=== PATIENT | male | born 1945 | race Caucasian/White ===

== ENCOUNTER 2016-11-04 11:38 | Inpatient (IN) | payer MEDICARE ==
[~2016-11-04] VITALS: Ht 172.7 cm; Wt 83.0 kg
[~2016-11-04 11:38] MED LIST: ANUSOL-HC SUPPO25 MG RC; CIPRO 500MG TA500 MG PO; DOXYCYCLINE 10100 MG PO; HTN MED; IMODIUM 2MG CAPS2 MG PO; NIFEDIPINE10 M1 PO; NORVASC 5MG5 MG/TAB PO; PREDNISONE20 MG PO; VASOTEC 10M10 MG/TAB PO; VASOTEC10 MG PO
[2016-11-04 12:26] LABS: ADJUSTED CALCIUM 8.9 mg/dL (8.4-10.2); ALBUMIN 4.5 gm/dL (3.5-5.0); BASO % 0.5 % (0.0-2.0); BILIRUBIN,TOTAL 1.2 mg/dL (0.0-1.0); CALCIUM 9.3 mg/dL (8.4-10.2); CREATININE, serum 1.15 mg/dL (0.66-1.25); GRAN # 6.8 (1.4-6.5); GRAN % 82.7 % (42.2-75.2); HEMATOCRIT 41.7 % (42.0-52.0); HEMOGLOBIN 13.6 g/dl (13.5-18.0); LYMPH # 0.8 (1.2-3.4); LYMPH % 9.5 % (20.0-51.0); MEAN CELL VOLUME 90 fl (80.0-100.0); MEAN CORPUSCULAR HEMOGLOBIN 29 pg (27.0-31.0); MEAN CORPUSCULAR HGB CONC 33 g/dl (33.0-37.0); MEAN PLATELET VOLUME 11.5 fl (7.4-10.4); MONO # 0.6 (0.1-0.6); MONO % 6.9 % (1.7-9.3); PLATELET COUNT 183 K/mm3 (130-400); POTASSIUM 3.9 mmol/L (3.4-5.0); RED BLOOD COUNT 4.64 M/mm3 (4.20-5.60); REDCELL DISTRIBUTION WIDTH-CV 13.8 % (11.5-14.5); TOTAL PROTEIN 8.3 gm/dL (6.4-8.2); WHITE BLOOD COUNT 8.2 K/mm3 (4.8-10.8)
[2016-11-04 12:30] LABS: INFLUENZA B NEGATIVE
[2016-11-04 15:56] VITALS: BP 129/89; PULSE 106; TEMP 98.7
[2016-11-04 20:27] VITALS: BP 126/75; PULSE 99; TEMP 99.5
[2016-11-04 23:48] VITALS: BP 127/91; PULSE 84; TEMP 99.2
[2016-11-05 03:55] VITALS: BP 149/95; PULSE 87; TEMP 99.4
[2016-11-05 07:41] VITALS: BP 126/81; PULSE 91; TEMP 98.1
[2016-11-05 11:36] VITALS: BP 134/84; PULSE 88; TEMP 100.5
[2016-11-05 15:27] VITALS: BP 121/74; PULSE 92; TEMP 98.6
[2016-11-05 19:58] VITALS: BP 156/91; PULSE 97; TEMP 98
[2016-11-06] VITALS (7 sets, daily range): BP systolic 130–175; BP diastolic 78–97; PULSE 64–84; TEMP 97.3–98.7
[2016-11-07] VITALS (576 sets, daily range): BP systolic 142–189; BP diastolic 87–117; PULSE 60–84; TEMP 97.7–99.5; O2SAT 60–100
[2016-11-07 07:51] LABS: MEAN CELL VOLUME 90 fl (80.0-100.0); MEAN CORPUSCULAR HGB CONC 33 g/dl (33.0-37.0); MEAN PLATELET VOLUME 11.7 fl (7.4-10.4); PLATELET COUNT 188 K/mm3 (130-400); RED BLOOD COUNT 3.84 M/mm3 (4.20-5.60); REDCELL DISTRIBUTION WIDTH-CV 14.3 % (11.5-14.5); WHITE BLOOD COUNT 9.5 K/mm3 (4.8-10.8)
[2016-11-07 07:53] LABS: CALCIUM 8.9 mg/dL (8.4-10.2); CREATININE, serum 0.95 mg/dL (0.66-1.25); POTASSIUM 3.7 mmol/L (3.4-5.0)
[2016-11-07 08:00] LABS: HEMATOCRIT 34.4 % (42.0-52.0); HEMOGLOBIN 11.3 g/dl (13.5-18.0); MEAN CORPUSCULAR HEMOGLOBIN 29 pg (27.0-31.0)
[2016-11-07 08:10] LABS: INR 1.2 (0.8-3.0); PROTHROMBIN TIME 13.7 SECONDS (9.7-12.8)
[2016-11-07 08:13] LABS: PARTIAL THROMBOPLASTIN TIME 31.4 SECONDS (26.0-37.0)
[2016-11-08] VITALS (660 sets, daily range): BP systolic 122–159; BP diastolic 88–110; PULSE 55–67; TEMP 97.4–98.6; O2SAT 78–100
[2016-11-08 06:38] LABS: CALCIUM 9.1 mg/dL (8.4-10.2); CREATININE, serum 1.04 mg/dL (0.66-1.25); POTASSIUM 3.4 mmol/L (3.4-5.0)
[2016-11-08 10:08] LABS: HEMATOCRIT 36.9 % (42.0-52.0); HEMOGLOBIN 12.1 g/dl (13.5-18.0); MEAN CELL VOLUME 89 fl (80.0-100.0); MEAN CORPUSCULAR HEMOGLOBIN 29 pg (27.0-31.0); MEAN CORPUSCULAR HGB CONC 33 g/dl (33.0-37.0); PLATELET COUNT 192 K/mm3 (130-400); RED BLOOD COUNT 4.13 M/mm3 (4.20-5.60); REDCELL DISTRIBUTION WIDTH-CV 14.2 % (11.5-14.5); WHITE BLOOD COUNT 12.6 K/mm3 (4.8-10.8)
[2016-11-08 11:39] LABS: INFLUENZA B NEGATIVE
[2016-11-08] MEDS ORDERED: TOPROL XL100 MG PO (13:45)
[2016-11-08] MEDS ORDERED: BRILINTA90 MG PO (13:45)
[2016-11-08] MEDS ORDERED: LIPITOR 40MG TA40 MG PO (13:45)
[2016-11-08] MEDS ORDERED: ASPIRIN E.C. 8181 MG PO (13:45)
[2016-11-08] MEDS ORDERED: LEVAQUIN 5500 MG/TA1 PO (13:47)
== END 2016-11-08 15:38 | disposition home or self-care (01) | DRG 982 ==
LOC: COL.ER 11:38 → MEDICAL 14:26 → IMCU 11-07 10:00 → ICU 11-07 10:00 → IMCU 11-07 10:00 → ICU 11-07 10:00 → IMCU 11-07 17:30
PROVIDERS: Emergency Medicine; Internal Medicine Cardiovascular Disease
PROC: 027135Z Dilation of Coronary Artery, Two Arteries with Two Drug-eluting Intraluminal Devices, Percutaneous Approach (ICD-10-PCS; principal; 2016-11-07)
PROC: B2111ZZ Fluoroscopy of Multiple Coronary Arteries using Low Osmolar Contrast (ICD-10-PCS; 2016-11-07)
DX: J18.9 Pneumonia, unspecified organism (principal); I47.1 Supraventricular tachycardia; I50.22 Chronic systolic (congestive) heart failure; I25.110 Atherosclerotic heart disease of native coronary artery with unstable angina pectoris; I11.0 Hypertensive heart disease with heart failure; Z95.5 Presence of coronary angioplasty implant and graft
CPT/HCPCS: C1725; C1760; C1769; C1874; C1887; C9600; G0378; J0583; J1100; J1956; J2250; J3010; J7030; Q9967

== ENCOUNTER → 2016-11-29 | Outpatient (CLI) | payer MEDICARE ==
[~2016-11-29] MED LIST changes: +ASPIRIN E.C. 8181 MG PO; +BRILINTA90 MG PO; +FLAGYL500 MG PO; +LEVAQUIN 5500 MG/TA1 PO; +LIPITOR 40MG TA40 MG PO; +NORCO 325 MG-51 TAB PO; +TOPROL XL100 MG PO
== END ==
LOC: COL.VAS 13:41
DX: I25.10 Atherosclerotic heart disease of native coronary artery without angina pectoris (principal); R94.39 Abnormal result of other cardiovascular function study

== ENCOUNTER 2017-01-30 10:16 | Emergency (ER) | payer MEDICARE ==
[2006-04-25 16:11] VITALS: BP 176/104
[~2017-01-30] VITALS: Ht 172.7 cm; Wt 79.5 kg
[~2017-01-30 10:16] MED LIST changes: -FLAGYL500 MG PO; -NORCO 325 MG-51 TAB PO
[2017-01-30 10:18] VITALS: TEMP 98.2
[2017-01-30 10:44] LABS: BASO # 0.1 (0.0-0.2); BASO % 1.2 % (0.0-2.0); EOS # 0.4 (0.0-0.7); GRAN # 2.8 (1.4-6.5); GRAN % 54.3 % (42.2-75.2); LYMPH # 1.4 (1.2-3.4); MEAN CELL VOLUME 92 fl (80.0-100.0); MEAN CORPUSCULAR HGB CONC 32 g/dl (33.0-37.0); MEAN PLATELET VOLUME 11.3 fl (7.4-10.4); MONO # 0.5 (0.1-0.6); MONO % 10.3 % (1.7-9.3); PLATELET COUNT 201 K/mm3 (130-400); RED BLOOD COUNT 3.96 M/mm3 (4.20-5.60); REDCELL DISTRIBUTION WIDTH-CV 14.6 % (11.5-14.5); WHITE BLOOD COUNT 5.2 K/mm3 (4.8-10.8)
[2017-01-30 10:46] LABS: HEMATOCRIT 36.6 % (42.0-52.0); HEMOGLOBIN 11.7 g/dl (13.5-18.0); MEAN CORPUSCULAR HEMOGLOBIN 30 pg (27.0-31.0)
[2017-01-30 10:48] LABS: INR 1.1 (0.8-3.0); PROTHROMBIN TIME 11.8 SECONDS (9.7-12.8)
[2017-01-30 10:51] LABS: PARTIAL THROMBOPLASTIN TIME 38.9 SECONDS (26.0-37.0)
[2017-01-30 11:15] LABS: ADJUSTED CALCIUM 9.2 mg/dL (8.4-10.2); ALBUMIN 4.3 gm/dL (3.5-5.0); BILIRUBIN,TOTAL 1.1 mg/dL (0.0-1.0); CALCIUM 9.4 mg/dL (8.4-10.2); CREATININE, serum 1.07 mg/dL (0.66-1.25); POTASSIUM 4.6 mmol/L (3.4-5.0); TOTAL PROTEIN 7.4 gm/dL (6.4-8.2)
[2017-01-30] MEDS ORDERED: ANUSOL-HC SUPPO25 MG RC (13:47)
[2017-01-30 14:37] VITALS: BP 173/84; PULSE 66
== END 2017-01-30 14:39 | disposition home or self-care (01) ==
LOC: COL.ER 10:16
PROVIDERS: Emergency Medicine
DX: I71.4 Abdominal aortic aneurysm, without rupture (principal); K64.4 Residual hemorrhoidal skin tags; I10 Essential (primary) hypertension; E78.5 Hyperlipidemia, unspecified; Z79.82 Long term (current) use of aspirin
CPT/HCPCS: Q9967

== ENCOUNTER 2017-03-08 14:23 | Outpatient (RCR) | payer MEDICARE | END 2017-03-12 | disposition home or self-care (01) | LOC: COL.CR | DX: Z48.812 Encounter for surgical aftercare following surgery on the circulatory system (principal); Z95.5 Presence of coronary angioplasty implant and graft ==

== ENCOUNTER 2017-03-12 17:55 | Inpatient (IN) | payer MEDICARE ==
[~2017-03-12] VITALS: Ht 172.7 cm; Wt 74.5 kg
[2017-03-12 18:38] LABS: BASO # 0.1 (0.0-0.2); BASO % 0.6 % (0.0-2.0); EOS # 0.3 (0.0-0.7); EOS % 2.3 % (0-4.0); GRAN # 8.7 (1.4-6.5); GRAN % 78.1 % (42.2-75.2); LYMPH # 1.3 (1.2-3.4); LYMPH % 11.5 % (20.0-51.0); MEAN CELL VOLUME 91 fl (80.0-100.0); MEAN CORPUSCULAR HGB CONC 33 g/dl (33.0-37.0); MEAN PLATELET VOLUME 11.3 fl (7.4-10.4); MONO # 0.8 (0.1-0.6); MONO % 7.1 % (1.7-9.3); PLATELET COUNT 226 K/mm3 (130-400); RED BLOOD COUNT 3.99 M/mm3 (4.20-5.60); WHITE BLOOD COUNT 11.1 K/mm3 (4.8-10.8)
[2017-03-12 18:42] LABS: PROTHROMBIN TIME 11.2 SECONDS (9.7-12.8)
[2017-03-12 18:44] LABS: HEMATOCRIT 36.3 % (42.0-52.0); HEMOGLOBIN 11.9 g/dl (13.5-18.0); MEAN CORPUSCULAR HEMOGLOBIN 30 pg (27.0-31.0)
[2017-03-12 18:45] LABS: PARTIAL THROMBOPLASTIN TIME 33.6 SECONDS (26.0-37.0)
[2017-03-12 18:48] LABS: ALANINE AMINOTRANSFERASE 78 U/L (21-72); ALBUMIN 4.2 gm/dL (3.5-5.0); ALKALINE PHOSPHATASE 191 U/L (50-136); ANION GAP 13 mmol/L (7-16); BLOOD UREA NITROGEN 23 mg/dL (9-20); CALCIUM 9.2 mg/dL (8.4-10.2); CARBON DIOXIDE 24 mmol/L (22-30); CHLORIDE 109 mmol/L (98-107); CREATININE, serum 1.03 mg/dL (0.66-1.25); GLUCOSE 98 mg/dL (74-106); POTASSIUM 4.2 mmol/L (3.4-5.0); SODIUM 146 mmol/L (137-145); TOTAL PROTEIN 7.4 gm/dL (6.4-8.2)
[2017-03-12 19:00] LABS: B-TYPE NATRIURETIC PEPTIDE 295 pg/mL (0-125); TROPONIN-I < 0.012 ng/mL (0.000-0.034)
[2017-03-12 19:45] LABS: COLLECTION METHOD CLEAN CATCH
[2017-03-12 19:51] LABS: MUCOUS Present /lpf; PH 7 (5-8); SQUAMOUS EPITHELIAL None Seen /hpf; URINE APPEARANCE Clear; URINE BACTERIA None Seen /hpf; URINE BILIRUBIN Negative (NEGATIVE); URINE BLOOD Negative (NEGATIVE); URINE COLOR Yellow; URINE GLUCOSE Negative (NEGATIVE); URINE KETONE Negative (NEGATIVE); URINE LEUKOCYTE ESTERASE Negative (NEGATIVE); URINE PROTEIN(semi-quant) Negative (NEGATIVE); URINE UROBILINOGEN Negative (NEGATIVE); URINE WBC 0-2 /hpf
[2017-03-12 19:52] LABS: AMYLASE 137 U/L (30-110); LIPASE 95 U/L (23-300)
[2017-03-12 22:45] VITALS: BP 156/69; PULSE 64; TEMP 98.7
[2017-03-12 22:46] VITALS: BP 156/69; PULSE 64; TEMP 98.7
[2017-03-13 02:36] VITALS: BP 158/60; PULSE 46; TEMP 98.2
[2017-03-13 06:40] VITALS: BP 152/91; PULSE 107; TEMP 98.2
[2017-03-13 06:54] LABS: BASO % 0.4 % (0.0-2.0); EOS # 0.1 (0.0-0.7); EOS % 1.5 % (0-4.0); GRAN # 7.2 (1.4-6.5); GRAN % 74.2 % (42.2-75.2); LYMPH # 1.3 (1.2-3.4); LYMPH % 13.6 % (20.0-51.0); MEAN CELL VOLUME 90 fl (80.0-100.0); MEAN CORPUSCULAR HGB CONC 33 g/dl (33.0-37.0); MEAN PLATELET VOLUME 11.5 fl (7.4-10.4); PLATELET COUNT 206 K/mm3 (130-400); RED BLOOD COUNT 3.82 M/mm3 (4.20-5.60); WHITE BLOOD COUNT 9.6 K/mm3 (4.8-10.8)
[2017-03-13 07:06] LABS: HEMATOCRIT 34.5 % (42.0-52.0); HEMOGLOBIN 11.2 g/dl (13.5-18.0); MEAN CORPUSCULAR HEMOGLOBIN 29 pg (27.0-31.0)
[2017-03-13 07:07] LABS: ADJUSTED CALCIUM 8.8 mg/dL (8.4-10.2); ALBUMIN 3.8 gm/dL (3.5-5.0); BILIRUBIN,TOTAL 1.7 mg/dL (0.0-1.0); CALCIUM 8.6 mg/dL (8.4-10.2); CREATININE, serum 0.91 mg/dL (0.66-1.25); TOTAL PROTEIN 6.9 gm/dL (6.4-8.2)
[2017-03-13 09:32] VITALS: BP 183/99; PULSE 69
[2017-03-13 13:37] VITALS: BP 161/80; PULSE 93; TEMP 98.2
[2017-03-13 17:56] VITALS: BP 179/79; PULSE 53; TEMP 98.7
[2017-03-13 21:38] VITALS: BP 135/76; PULSE 61; TEMP 98.5
[2017-03-14] VITALS (11 sets, daily range): BP systolic 135–188; BP diastolic 63–95; PULSE 46–89; TEMP 98.1–98.6
[2017-03-14 11:12] LABS: ADJUSTED CALCIUM 8.8 mg/dL (8.4-10.2); ALBUMIN 3.7 gm/dL (3.5-5.0); BILIRUBIN,TOTAL 1.1 mg/dL (0.0-1.0); CALCIUM 8.6 mg/dL (8.4-10.2); CREATININE, serum 0.94 mg/dL (0.66-1.25); POTASSIUM 3.5 mmol/L (3.4-5.0); TOTAL PROTEIN 6.6 gm/dL (6.4-8.2)
[2017-03-15] VITALS (8 sets, daily range): BP systolic 106–158; BP diastolic 46–88; PULSE 44–78; TEMP 97.6–98.7
[2017-03-15 07:25] LABS: BASO % 0.7 % (0.0-2.0); EOS # 0.2 (0.0-0.7); EOS % 3.7 % (0-4.0); GRAN # 3.5 (1.4-6.5); GRAN % 64.4 % (42.2-75.2); LYMPH % 18.6 % (20.0-51.0); MEAN CELL VOLUME 92 fl (80.0-100.0); MEAN CORPUSCULAR HGB CONC 32 g/dl (33.0-37.0); MEAN PLATELET VOLUME 11.4 fl (7.4-10.4); MONO # 0.7 (0.1-0.6); MONO % 12.4 % (1.7-9.3); PLATELET COUNT 166 K/mm3 (130-400); RED BLOOD COUNT 3.32 M/mm3 (4.20-5.60); WHITE BLOOD COUNT 5.4 K/mm3 (4.8-10.8)
[2017-03-15 07:27] LABS: HEMATOCRIT 30.4 % (42.0-52.0); HEMOGLOBIN 9.8 g/dl (13.5-18.0); MEAN CORPUSCULAR HEMOGLOBIN 30 pg (27.0-31.0)
[2017-03-15 07:48] LABS: ADJUSTED CALCIUM 9.1 mg/dL (8.4-10.2); ALBUMIN 3.5 gm/dL (3.5-5.0); BILIRUBIN,TOTAL 0.9 mg/dL (0.0-1.0); CALCIUM 8.7 mg/dL (8.4-10.2); CREATININE, serum 0.89 mg/dL (0.66-1.25); POTASSIUM 3.3 mmol/L (3.4-5.0); TOTAL PROTEIN 6.3 gm/dL (6.4-8.2)
[2017-03-15] MEDS ORDERED: NORCO 325 MG-51 TAB PO (17:01)
[2017-03-15] MEDS ORDERED: LEVAQUIN 5500 MG/TA1 PO (17:03)
[2017-03-15] MEDS ORDERED: FLAGYL500 MG PO (17:03)
== END 2017-03-15 19:45 | disposition home or self-care (01) | DRG 446 ==
LOC: COL.ER 17:55 → SURG 21:06
PROVIDERS: Emergency Medicine; Internal Medicine Gastroenterology; Nurse Practitioner Family
PROC: 0FJD8ZZ Inspection of Pancreatic Duct, Via Natural or Artificial Opening Endoscopic (ICD-10-PCS; 2017-03-15)
PROC: 0FJB8ZZ Inspection of Hepatobiliary Duct, Via Natural or Artificial Opening Endoscopic (ICD-10-PCS; principal; 2017-03-15 14:15)
DX: K80.00 Calculus of gallbladder with acute cholecystitis without obstruction (principal); I10 Essential (primary) hypertension; E64.9 Sequelae of unspecified nutritional deficiency; I25.10 Atherosclerotic heart disease of native coronary artery without angina pectoris; I71.4 Abdominal aortic aneurysm, without rupture; Z95.5 Presence of coronary angioplasty implant and graft; D64.9 Anemia, unspecified
CPT/HCPCS: OP; 99222-AI; 99232-AI; 99239; A9502; C1769; G0378; J1610; J1644; J1956; J2405; J2704; J2765; J2785; J3010; J7030; J7120; Q9967

== ENCOUNTER 2017-03-19 15:10 | Day surgery (SDC) | payer MEDICARE ==
[2006-04-25 16:11] VITALS: BP 176/104
[~2017-03-19] VITALS: Ht 172.7 cm; Wt 78.2 kg
[~2017-03-19 15:10] MED LIST changes: +FLAGYL500 MG PO; +NORCO 325 MG-51 TAB PO
[2017-03-19 16:41] VITALS: BP 178/91; PULSE 51; TEMP 99
[2017-03-19 19:30] VITALS: BP 146/71; PULSE 56; TEMP 99
[2017-03-19 19:45] VITALS: BP 137/68; PULSE 52
[2017-03-19 20:45] VITALS: BP 175/66; PULSE 67; TEMP 98
[2017-03-19 21:15] VITALS: BP 143/72; PULSE 53
[2017-03-19 23:15] VITALS: BP 136/79; PULSE 66
[2017-03-20 01:59] VITALS: BP 117/75; PULSE 58; TEMP 98
[2017-03-20 07:20] LABS: MEAN CELL VOLUME 91 fl (80.0-100.0); MEAN CORPUSCULAR HGB CONC 32 g/dl (33.0-37.0); MEAN PLATELET VOLUME 11.7 fl (7.4-10.4); PLATELET COUNT 183 K/mm3 (130-400); RED BLOOD COUNT 3.51 M/mm3 (4.20-5.60); REDCELL DISTRIBUTION WIDTH-CV 14.4 % (11.5-14.5); WHITE BLOOD COUNT 7.3 K/mm3 (4.8-10.8)
[2017-03-20 07:21] LABS: HEMOGLOBIN 10.3 g/dl (13.5-18.0); MEAN CORPUSCULAR HEMOGLOBIN 29 pg (27.0-31.0)
[2017-03-20 07:36] LABS: ADJUSTED CALCIUM 9.2 mg/dL (8.4-10.2); ALBUMIN 3.8 gm/dL (3.5-5.0); BILIRUBIN,TOTAL 0.5 mg/dL (0.0-1.0); CREATININE, serum 1.01 mg/dL (0.66-1.25); POTASSIUM 3.9 mmol/L (3.4-5.0); TOTAL PROTEIN 6.8 gm/dL (6.4-8.2)
[2017-03-20 10:20] VITALS: BP 153/78; PULSE 51; TEMP 98.1
== END 2017-03-20 17:54 | disposition home or self-care (01) ==
LOC: SDCO 15:10 → SURG 19:05 → SDCO 03-20 17:54
PROVIDERS: Surgery
DX: D64.9 Anemia, unspecified (principal); K80.10 Calculus of gallbladder with chronic cholecystitis without obstruction; R79.89 Other specified abnormal findings of blood chemistry; I71.2 Thoracic aortic aneurysm, without rupture; I71.4 Abdominal aortic aneurysm, without rupture; I10 Essential (primary) hypertension; E78.5 Hyperlipidemia, unspecified; F41.9 Anxiety disorder, unspecified
CPT/HCPCS: OP; A9537; J0360; J1100; J2405; J2704; J3010; J7042; Q9967

== ENCOUNTER 2017-03-22 17:06 | Emergency (ER) | payer MEDICARE ==
[2006-04-25 16:11] VITALS: BP 176/104
[~2017-03-22] VITALS: Ht 152.4 cm; Wt 79.1 kg
[2017-03-22 17:07] VITALS: TEMP 96.7
[2017-03-22] MEDS ORDERED: BRILINTA90 MG PO (17:17)
[2017-03-22 17:50] LABS: BASO % 0.4 % (0.0-2.0); EOS # 0.2 (0.0-0.7); EOS % 2.2 % (0-4.0); GRAN # 5.5 (1.4-6.5); LYMPH # 1.1 (1.2-3.4); LYMPH % 14.5 % (20.0-51.0); MEAN CELL VOLUME 90 fl (80.0-100.0); MEAN CORPUSCULAR HGB CONC 33 g/dl (33.0-37.0); MEAN PLATELET VOLUME 10.9 fl (7.4-10.4); MONO # 0.9 (0.1-0.6); MONO % 11.4 % (1.7-9.3); PLATELET COUNT 192 K/mm3 (130-400); RED BLOOD COUNT 3.54 M/mm3 (4.20-5.60); REDCELL DISTRIBUTION WIDTH-CV 14.5 % (11.5-14.5); WHITE BLOOD COUNT 7.8 K/mm3 (4.8-10.8)
[2017-03-22 17:59] LABS: HEMATOCRIT 31.9 % (42.0-52.0); HEMOGLOBIN 10.5 g/dl (13.5-18.0); MEAN CORPUSCULAR HEMOGLOBIN 30 pg (27.0-31.0)
[2017-03-22 18:03] LABS: ADJUSTED CALCIUM 9.1 mg/dL (8.4-10.2); ALBUMIN 3.8 gm/dL (3.5-5.0); BILIRUBIN,TOTAL 0.9 mg/dL (0.0-1.0); C-REACTIVE PROTEIN 2.2 mg/dL (0.0-0.9); CALCIUM 8.9 mg/dL (8.4-10.2); INR 1.2 (0.8-3.0); POTASSIUM 3.8 mmol/L (3.4-5.0); PROTHROMBIN TIME 12.8 SECONDS (9.7-12.8); TOTAL PROTEIN 6.9 gm/dL (6.4-8.2)
[2017-03-22 18:36] VITALS: BP 161/89; PULSE 67
== END 2017-03-22 19:04 | disposition home or self-care (01) ==
LOC: COL.ER 17:06
PROVIDERS: Family Medicine
DX: K64.4 Residual hemorrhoidal skin tags (principal); I10 Essential (primary) hypertension; I25.10 Atherosclerotic heart disease of native coronary artery without angina pectoris; Z90.49 Acquired absence of other specified parts of digestive tract

== ENCOUNTER 2017-04-04 11:31 | Emergency (ER) | payer MEDICARE ==
[2006-04-25 16:11] VITALS: BP 176/104
[~2017-04-04] VITALS: Ht 172.7 cm; Wt 76.8 kg
[2017-04-04 11:33] VITALS: TEMP 97.9
[2017-04-04 12:16] LABS: BASO # 0.1 (0.0-0.2); BASO % 0.8 % (0.0-2.0); EOS # 0.1 (0.0-0.7); EOS % 2.2 % (0-4.0); GRAN # 5.1 (1.4-6.5); LYMPH # 0.6 (1.2-3.4); LYMPH % 9.2 % (20.0-51.0); MEAN CELL VOLUME 92 fl (80.0-100.0); MEAN CORPUSCULAR HGB CONC 32 g/dl (33.0-37.0); MEAN PLATELET VOLUME 10.3 fl (7.4-10.4); MONO # 0.5 (0.1-0.6); MONO % 8.5 % (1.7-9.3); PLATELET COUNT 277 K/mm3 (130-400); RED BLOOD COUNT 3.66 M/mm3 (4.20-5.60); REDCELL DISTRIBUTION WIDTH-CV 13.7 % (11.5-14.5); WHITE BLOOD COUNT 6.4 K/mm3 (4.8-10.8)
[2017-04-04 12:19] LABS: HEMATOCRIT 33.6 % (42.0-52.0); HEMOGLOBIN 10.9 g/dl (13.5-18.0); MEAN CORPUSCULAR HEMOGLOBIN 30 pg (27.0-31.0)
[2017-04-04 12:25] LABS: INR 1.1 (0.8-3.0); PROTHROMBIN TIME 12.3 SECONDS (9.7-12.8)
[2017-04-04 12:31] LABS: CALCIUM 9.1 mg/dL (8.4-10.2); CREATININE, serum 1.1 mg/dL (0.66-1.25); POTASSIUM 4.1 mmol/L (3.4-5.0)
[2017-04-04] MEDS ORDERED: ANUSOL-HC SUPPO25 MG RC (13:03)
[2017-04-04 14:15] VITALS: BP 173/102; PULSE 65
== END 2017-04-04 14:15 | disposition home or self-care (01) ==
LOC: COL.ER 11:31
PROVIDERS: Emergency Medicine
DX: K64.5 Perianal venous thrombosis (principal); I10 Essential (primary) hypertension; I25.10 Atherosclerotic heart disease of native coronary artery without angina pectoris; Z95.5 Presence of coronary angioplasty implant and graft
CPT/HCPCS: J7030

== ENCOUNTER 2017-04-22 14:17 | Outpatient (RCR) | payer MEDICARE | END 2017-04-26 05:54 | disposition home or self-care (01) | LOC: COL.CR 14:17 | DX: Z48.812 Encounter for surgical aftercare following surgery on the circulatory system (principal); Z95.5 Presence of coronary angioplasty implant and graft ==

== ENCOUNTER 2017-09-02 16:57 | Emergency (ER) | payer MEDICARE ==
[2006-04-25 16:11] VITALS: BP 176/104
[~2017-09-02] VITALS: Ht 172.7 cm; Wt 86.4 kg
[~2017-09-02 16:57] MED LIST changes: +FLOMAX 0.40.4 MG/CAP PO; +PYRIDIUM 100MG100 MG PO; +ZOFRAN ODT4 MG PO
[2017-09-02 17:01] VITALS: TEMP 101.6
[2017-09-02 17:35] LABS: MEAN CELL VOLUME 90 fl (80.0-100.0); MEAN CORPUSCULAR HGB CONC 32 g/dl (33.0-37.0); MEAN PLATELET VOLUME 10.7 fl (7.4-10.4); PLATELET COUNT 404 K/mm3 (130-400); RED BLOOD COUNT 2.85 M/mm3 (4.20-5.60); WHITE BLOOD COUNT 18.4 K/mm3 (4.8-10.8)
[2017-09-02 17:36] LABS: ADD PATHOLOGY DIFF REVIEW NO; HEMATOCRIT 25.6 % (42.0-52.0); HEMOGLOBIN 8.3 g/dl (13.5-18.0); MEAN CORPUSCULAR HEMOGLOBIN 29 pg (27.0-31.0)
[2017-09-02 17:46] LABS: INFLUENZA A NEGATIVE; INFLUENZA B NEGATIVE
[2017-09-02 17:48] LABS: ADJUSTED CALCIUM 9.2 mg/dL (8.4-10.2); BILIRUBIN,TOTAL 2.3 mg/dL (0.0-1.0); CALCIUM 8.4 mg/dL (8.4-10.2); CREATININE, serum 1.26 mg/dL (0.66-1.25); POTASSIUM 3.9 mmol/L (3.4-5.0); TOTAL PROTEIN 6.7 gm/dL (6.4-8.2)
[2017-09-02 18:02] LABS: BAND 4 % (0-10); LYMPHOCYTE 1 % (20.0-51.0); NEUTROPHILS 86 % (42.0-75.2); TOTAL CELLS COUNTED 100
[2017-09-02 18:04] LABS: HYPOCHROMIA 1+
[2017-09-02 18:05] LABS: ANISOCYTOSIS 1+; PLATELET ESTIMATE INCREASED (NORMAL)
[2017-09-02 18:16] LABS: POIKILOCYTOSIS 1+
[2017-09-02 18:30] LABS: INR 1.4 (0.8-3.0); PROTHROMBIN TIME 16.5 SECONDS (9.7-12.8)
[2017-09-02 19:59] LABS: COLLECTION METHOD CLEAN CATCH
[2017-09-02 20:11] LABS: MUCOUS Present /lpf; PH 5 (5-8); SQUAMOUS EPITHELIAL 0-2 /hpf; URINE APPEARANCE Cloudy; URINE BACTERIA None Seen /hpf; URINE BILIRUBIN Negative (NEGATIVE); URINE BLOOD 2+ (NEGATIVE); URINE COLOR Yellow; URINE GLUCOSE Negative (NEGATIVE); URINE KETONE Negative (NEGATIVE); URINE LEUKOCYTE ESTERASE Negative (NEGATIVE); URINE PROTEIN(semi-quant) 2+ (NEGATIVE); URINE UROBILINOGEN Negative (NEGATIVE)
[2017-09-02 20:37] VITALS: BP 112/75; PULSE 95
== END 2017-09-02 20:20 | disposition short-term general hospital (02) ==
LOC: COL.ER 16:57
PROVIDERS: Emergency Medicine
DX: I71.01 Dissection of thoracic aorta (principal); I31.3 Pericardial effusion (noninflammatory); R50.9 Fever, unspecified; I25.10 Atherosclerotic heart disease of native coronary artery without angina pectoris; Z95.5 Presence of coronary angioplasty implant and graft
CPT/HCPCS: J2405; J2543; J3370; J7030; J7040; J7050; Q9967

== ENCOUNTER 2017-09-13 17:16 | Inpatient (IN) | payer MEDICARE ==
[~2017-09-13] VITALS: Ht 172.7 cm; Wt 75.2 kg
[2017-09-15 13:20] VITALS: BP 130/70; PULSE 81; TEMP 98.1
[2017-09-15] MEDS ORDERED: LASIX 40MG TABL40 MG PO (13:58)
[2017-09-15] MEDS ORDERED: CENA K20 MEQ/15 PO (13:59)
[2017-09-15] MEDS ORDERED: PLAVIX 75MG TAB75 MG PO (14:01)
[2017-09-15 16:26] VITALS: BP 127/60; PULSE 88; TEMP 99.2
[2017-09-16 05:48] VITALS: BP 126/68; PULSE 91; TEMP 98.5
[2017-09-16 16:37] VITALS: BP 137/76; PULSE 81; TEMP 98.3
[2017-09-17 06:07] VITALS: BP 134/70; PULSE 88; TEMP 98.6
[2017-09-17 18:45] VITALS: BP 110/53; PULSE 88; TEMP 98.3
[2017-09-18 04:55] VITALS: BP 155/75; PULSE 86; TEMP 98.7
[2017-09-18 18:23] VITALS: BP 138/70; PULSE 78; TEMP 98
[2017-09-19 04:36] VITALS: BP 134/83; PULSE 79; TEMP 98.4
[2017-09-19 17:00] VITALS: BP 125/97; PULSE 81; TEMP 98.7
[2017-09-20 04:24] VITALS: BP 153/74; PULSE 81; TEMP 98.9
[2017-09-20] MEDS ORDERED: PROTONIX 40MG T40 MG PO (07:54)
[2017-09-20] MEDS ORDERED: LASIX 20MG TABL20 MG PO (07:54)
== END 2017-09-20 13:45 | disposition home health service (06) | DRG 947 ==
DX: R53.81 Other malaise (principal); A41.9 Sepsis, unspecified organism; N17.9 Acute kidney failure, unspecified; I71.4 Abdominal aortic aneurysm, without rupture; I10 Essential (primary) hypertension; Z95.5 Presence of coronary angioplasty implant and graft; I25.10 Atherosclerotic heart disease of native coronary artery without angina pectoris; I48.0 Paroxysmal atrial fibrillation
CPT/HCPCS: 99222-AI; 99232-AI; 99238; A9284

== ENCOUNTER 2017-09-30 04:59 | Inpatient (IN) | payer MEDICARE ==
[~2017-09-30] VITALS: Ht 172.7 cm; Wt 72.9 kg
[2017-09-30] VITALS (25 sets, daily range): BP systolic 73–156; BP diastolic 47–102; PULSE 80–103; TEMP 97.1–99.2; O2SAT 88–100
[~2017-09-30 04:59] MED LIST changes: +CENA K20 MEQ/15 PO; +LASIX 20MG TABL20 MG PO; +LASIX 40MG TABL40 MG PO; +PLAVIX 75MG TAB75 MG PO; +PROTONIX 40MG T40 MG PO
[2017-09-30 05:25] LABS: BASO # 0.1 (0.0-0.2); BASO % 0.7 % (0.0-2.0); EOS # 0.5 (0.0-0.7); EOS % 7.9 % (0-4.0); GRAN # 4.2 (1.4-6.5); LYMPH # 1.2 (1.2-3.4); LYMPH % 17.9 % (20.0-51.0); MEAN CELL VOLUME 95 fl (80.0-100.0); MEAN CORPUSCULAR HGB CONC 30 g/dl (33.0-37.0); MEAN PLATELET VOLUME 9.6 fl (7.4-10.4); MONO # 0.7 (0.1-0.6); MONO % 10.9 % (1.7-9.3); PLATELET COUNT 485 K/mm3 (130-400); RED BLOOD COUNT 2.56 M/mm3 (4.20-5.60); REDCELL DISTRIBUTION WIDTH-CV 15.4 % (11.5-14.5)
[2017-09-30 05:29] LABS: INR 1.2 (0.8-3.0); PROTHROMBIN TIME 14.2 SECONDS (9.7-12.8)
[2017-09-30 05:32] LABS: HEMATOCRIT 24.2 % (42.0-52.0); HEMOGLOBIN 7.3 g/dl (13.5-18.0); MEAN CORPUSCULAR HEMOGLOBIN 29 pg (27.0-31.0); PARTIAL THROMBOPLASTIN TIME 31.3 SECONDS (26.0-37.0)
[2017-09-30 05:34] LABS: ALBUMIN 3.3 gm/dL (3.5-5.0); BILIRUBIN,TOTAL 0.6 mg/dL (0.0-1.0); CALCIUM 8.8 mg/dL (8.4-10.2); CREATININE, serum 1.26 mg/dL (0.66-1.25); POTASSIUM 4.6 mmol/L (3.4-5.0); TOTAL PROTEIN 7.6 gm/dL (6.4-8.2)
[2017-09-30 05:47] LABS: TROPONIN-I 0.035 ng/mL (0.000-0.034)
[2017-09-30 13:51] LABS: COLLECTION METHOD CLEAN CATCH
[2017-09-30 13:59] LABS: MUCOUS Present /lpf; PH 5 (5-8); SQUAMOUS EPITHELIAL 0-2 /hpf; URINE APPEARANCE Hazy; URINE BACTERIA None Seen /hpf; URINE BILIRUBIN Negative (NEGATIVE); URINE BLOOD 1+ (NEGATIVE); URINE COLOR Yellow; URINE GLUCOSE Negative (NEGATIVE); URINE KETONE Negative (NEGATIVE); URINE LEUKOCYTE ESTERASE Negative (NEGATIVE); URINE NITRATE Negative (NEGATIVE); URINE PROTEIN(semi-quant) 1+ (NEGATIVE); URINE UROBILINOGEN Negative (NEGATIVE)
[2017-09-30 15:22] LABS: HEMATOCRIT 26.9 % (42.0-52.0); HEMOGLOBIN 8.4 g/dl (13.5-18.0)
[2017-10-01] VITALS (11 sets, daily range): BP systolic 130–160; BP diastolic 70–106; PULSE 67–87; TEMP 97.5–98.8
[2017-10-01 09:08] LABS: HEMATOCRIT 23.7 % (42.0-52.0); HEMOGLOBIN 7.4 g/dl (13.5-18.0)
[2017-10-02] VITALS (16 sets, daily range): BP systolic 127–163; BP diastolic 57–89; PULSE 73–106; TEMP 97.9–99.7
[2017-10-02 07:41] LABS: HEMATOCRIT 31.2 % (42.0-52.0); HEMOGLOBIN 10.3 g/dl (13.5-18.0)
[2017-10-03 03:53] VITALS: BP 155/85; PULSE 85; TEMP 99.3
[2017-10-03 07:48] VITALS: BP 165/90; PULSE 90; TEMP 98.7
[2017-10-03 08:44] LABS: HEMATOCRIT 30.4 % (42.0-52.0)
[2017-10-03 08:56] LABS: CREATININE, serum 0.96 mg/dL (0.66-1.25)
[2017-10-03 09:07] LABS: C-REACTIVE PROTEIN 24.8 mg/dL (0.0-0.9)
[2017-10-03 12:46] VITALS: BP 167/98; PULSE 102; TEMP 98.5
[2017-10-03 15:04] VITALS: BP 142/86; PULSE 79; TEMP 98.4
[2017-10-03 20:32] VITALS: BP 145/75; PULSE 97; TEMP 98.5
[2017-10-04 00:42] VITALS: BP 156/77; PULSE 84; TEMP 98.2
[2017-10-04 03:35] VITALS: BP 153/74; PULSE 79; TEMP 99.2
[2017-10-04 06:40] LABS: HEMATOCRIT 28.4 % (42.0-52.0); HEMOGLOBIN 9.1 g/dl (13.5-18.0)
[2017-10-04 07:37] VITALS: BP 164/88; PULSE 94; TEMP 97.7
[2017-10-04] MEDS ORDERED: TOPROL XL100 MG PO (08:39)
[2017-10-04] MEDS ORDERED: PROTONIX 40MG T40 MG PO (08:39)
[2017-10-04] MEDS ORDERED: ASPIRIN E.C. 8181 MG PO (08:39)
[2017-10-04] MEDS ORDERED: PLAVIX 75MG TAB75 MG PO (08:39)
[2017-10-04] MEDS ORDERED: NATURAL IRON65 MG PO (08:39)
[2017-10-04] MEDS ORDERED: FLOMAX 0.40.4 MG/CAP PO (08:39)
[2017-10-04] MEDS ORDERED: VASOTEC 5MG5 MG/TAB PO (08:39)
== END 2017-10-04 11:36 | disposition home health service (06) | DRG 812 ==
LOC: COL.ER 04:59 → MEDICAL 08:52 → ICU 08:52 → MEDICAL 10-01 10:06
PROVIDERS: Emergency Medicine
DX: D50.0 Iron deficiency anemia secondary to blood loss (chronic) (principal); R55 Syncope and collapse; E86.0 Dehydration; I10 Essential (primary) hypertension; S00.83XA Contusion of other part of head, initial encounter; W18.39XA Other fall on same level, initial encounter; N40.1 Benign prostatic hyperplasia with lower urinary tract symptoms; R35.1 Nocturia; S00.81XA Abrasion of other part of head, initial encounter; Z22.322 Carrier or suspected carrier of Methicillin resistant Staphylococcus aureus; Z48.812 Encounter for surgical aftercare following surgery on the circulatory system; Z95.5 Presence of coronary angioplasty implant and graft
CPT/HCPCS: J2405; J3370; J7030; J7050; P9016; Q9967

== ENCOUNTER 2017-11-23 14:22 | Emergency (ER) | payer MEDICARE ==
[2006-04-25 16:11] VITALS: BP 176/104
[~2017-11-23] VITALS: Ht 172.7 cm; Wt 70.5 kg
[~2017-11-23 14:22] MED LIST changes: +NATURAL IRON65 MG PO; +VASOTEC 5MG5 MG/TAB PO
[2017-11-23 14:23] VITALS: TEMP 98.5
[2017-11-23] MEDS ORDERED: COLACE 100100 MG/CAP PO (16:36)
[2017-11-23 16:43] VITALS: BP 163/93; PULSE 91
== END 2017-11-23 16:48 | disposition home or self-care (01) ==
LOC: COL.ER 14:22
DX: K64.5 Perianal venous thrombosis (principal); I10 Essential (primary) hypertension; I25.10 Atherosclerotic heart disease of native coronary artery without angina pectoris; Z90.49 Acquired absence of other specified parts of digestive tract; Z95.5 Presence of coronary angioplasty implant and graft; Z79.02 Long term (current) use of antithrombotics/antiplatelets; Z79.82 Long term (current) use of aspirin

== ENCOUNTER 2018-08-22 07:50 | Day surgery (SDC) | payer MEDICARE ==
[2006-04-25 16:11] VITALS: BP 176/104
[~2018-08-22] VITALS: Ht 172.7 cm; Wt 80.5 kg
[~2018-08-22 07:50] MED LIST changes: +COLACE 100100 MG/CAP PO
[2018-08-22 09:01] VITALS: BP 160/66; PULSE 51; TEMP 97.8
[2018-08-22] MEDS ORDERED: NORCO 325 MG-51 TAB PO (11:40)
[2018-08-22 11:46] VITALS: BP 124/55; PULSE 64; TEMP 97.6
[2018-08-22 12:01] VITALS: BP 137/63; PULSE 51
[2018-08-22 12:16] VITALS: BP 158/63; PULSE 48
[2018-08-22 12:31] VITALS: BP 164/66; PULSE 51
== END 2018-08-22 13:20 | disposition home or self-care (01) ==
LOC: SDCO 07:50
DX: K64.2 Third degree hemorrhoids (principal); I10 Essential (primary) hypertension; Z95.820 Peripheral vascular angioplasty status with implants and grafts; Z79.02 Long term (current) use of antithrombotics/antiplatelets; Z79.899 Other long term (current) drug therapy; Z79.82 Long term (current) use of aspirin
CPT/HCPCS: J0690; J1100; J2405; J2704; J3010; J7120

== ENCOUNTER 2020-04-26 10:59 | Emergency (ER) | payer MEDICARE ==
[2006-04-25 16:11] VITALS: BP 176/104
[~2020-04-26] VITALS: Ht 172.7 cm; Wt 81.8 kg
[2020-04-26 11:01] VITALS: TEMP 97.6
[2020-04-26] MEDS ORDERED: NORVASC 10MG10 MG PO (11:12)
[2020-04-26] MEDS ORDERED: VASOTEC20 MG PO (11:12)
[2020-04-26] MEDS ORDERED: TOPROL XL100 MG PO (11:14)
[2020-04-26 11:43] LABS: BASO % 0.4 % (0.0-2.0); EOS # 0.1 (0.0-0.7); EOS % 0.7 % (0-4.0); GRAN # 7.6 (1.4-6.5); GRAN % 77.6 % (42.2-75.2); HEMATOCRIT 37.7 % (42.0-52.0); HEMOGLOBIN 11.9 g/dl (13.5-18.0); LYMPH # 1.5 (1.2-3.4); LYMPH % 15.3 % (20.0-51.0); MEAN CELL VOLUME 88 fl (80.0-100.0); MEAN CORPUSCULAR HEMOGLOBIN 28 pg (27.0-31.0); MEAN CORPUSCULAR HGB CONC 32 g/dl (33.0-37.0); MEAN PLATELET VOLUME 10.3 fl (7.4-10.4); MONO # 0.6 (0.1-0.6); MONO % 5.7 % (1.7-9.3); PLATELET COUNT 303 K/mm3 (130-400); RED BLOOD COUNT 4.28 M/mm3 (4.20-5.60); REDCELL DISTRIBUTION WIDTH-CV 14.8 % (11.5-14.5)
[2020-04-26 11:47] LABS: INR 1.1 (0.8-3.0)
[2020-04-26 11:52] LABS: ALANINE AMINOTRANSFERASE 20 U/L (4-49); ALKALINE PHOSPHATASE 213 U/L (50-136); ANION GAP 8 mmol/L (7-16); AST,SGOT 54 U/L (15-37); BILIRUBIN,TOTAL 0.9 mg/dL (0.0-1.0); BLOOD UREA NITROGEN 21 mg/dL (9-20); CALCIUM 8.8 mg/dL (8.4-10.2); CARBON DIOXIDE 21 mmol/L (22-30); CHLORIDE 110 mmol/L (98-107); CREATININE, serum 1.35 (0.66-1.25); GLUCOSE 110 mg/dL (74-106); POTASSIUM 4.6 mmol/L (3.4-5.0); SODIUM 138 mmol/L (137-145); TOTAL PROTEIN 7.9 gm/dL (6.4-8.2)
[2020-04-26 12:05] LABS: TROPONIN-I < 0.012 ng/mL (0.000-0.035)
[2020-04-26 14:37] VITALS: BP 129/59; PULSE 47
== END 2020-04-26 14:40 | disposition home or self-care (01) ==
LOC: COL.ER 10:59
PROVIDERS: Emergency Medicine
DX: R19.7 Diarrhea, unspecified (principal); I71.4 Abdominal aortic aneurysm, without rupture; N17.9 Acute kidney failure, unspecified; I25.10 Atherosclerotic heart disease of native coronary artery without angina pectoris; R18.8 Other ascites; Z79.82 Long term (current) use of aspirin; Z79.02 Long term (current) use of antithrombotics/antiplatelets; Z95.5 Presence of coronary angioplasty implant and graft; Z90.49 Acquired absence of other specified parts of digestive tract
CPT/HCPCS: J2405; J7030; Q9967

== ENCOUNTER 2020-08-15 16:21 | Emergency (ER) | payer MEDICARE ==
[2006-04-25 16:11] VITALS: BP 176/104
[~2020-08-15] VITALS: Ht 172.7 cm; Wt 84.1 kg
[2020-08-15 16:21] VITALS: TEMP 98.8
[~2020-08-15 16:21] MED LIST changes: +NORVASC 10MG10 MG PO; +VASOTEC20 MG PO
[2020-08-15 16:44] LABS: BASO # 0.1 (0.0-0.2); BASO % 0.8 % (0.0-2.0); EOS # 0.3 (0.0-0.7); EOS % 3.5 % (0-4.0); GRAN # 3.8 (1.4-6.5); GRAN % 53.7 % (42.2-75.2); HEMOGLOBIN 11.4 g/dl (13.5-18.0); LYMPH # 2.2 (1.2-3.4); LYMPH % 30.7 % (20.0-51.0); MEAN CELL VOLUME 89 fl (80.0-100.0); MEAN CORPUSCULAR HEMOGLOBIN 28 pg (27.0-31.0); MEAN CORPUSCULAR HGB CONC 32 g/dl (33.0-37.0); MEAN PLATELET VOLUME 10.2 fl (7.4-10.4); MONO # 0.8 (0.1-0.6); PLATELET COUNT 266 K/mm3 (130-400); RED BLOOD COUNT 4.06 M/mm3 (4.20-5.60); REDCELL DISTRIBUTION WIDTH-CV 14.7 % (11.5-14.5)
[2020-08-15 17:12] LABS: ALBUMIN 4.1 gm/dL (3.5-5.0); BILIRUBIN,TOTAL 0.3 mg/dL (0.0-1.0); CALCIUM 9.2 mg/dL (8.4-10.2); CREATININE, serum 1.27 (0.66-1.25); POTASSIUM 4.7 mmol/L (3.4-5.0); TOTAL PROTEIN 7.9 gm/dL (6.4-8.2)
[2020-08-15 18:03] VITALS: BP 137/55; PULSE 53
== END 2020-08-15 18:15 | disposition home or self-care (01) ==
LOC: COL.ER 16:21
PROVIDERS: Emergency Medicine
DX: K62.5 Hemorrhage of anus and rectum (principal); Z87.442 Personal history of urinary calculi; Z95.9 Presence of cardiac and vascular implant and graft, unspecified; Z79.02 Long term (current) use of antithrombotics/antiplatelets; Z79.82 Long term (current) use of aspirin

== ENCOUNTER 2021-02-26 09:32 | Emergency (ER) | payer MEDICARE ==
[2006-04-25 16:11] VITALS: BP 176/104
[~2021-02-26] VITALS: Ht 172.7 cm; Wt 86.4 kg
[2021-02-26 09:33] VITALS: TEMP 98.2
[2021-02-26 10:10] LABS: BASO # 0.1 (0.0-0.2); BASO % 0.6 % (0.0-2.0); EOS # 0.2 (0.0-0.7); EOS % 2.1 % (0-4.0); GRAN # 6.2 (1.4-6.5); GRAN % 70.7 % (42.2-75.2); HEMATOCRIT 35.4 % (42.0-52.0); HEMOGLOBIN 10.9 g/dl (13.5-18.0); LYMPH # 1.5 (1.2-3.4); LYMPH % 16.6 % (20.0-51.0); MEAN CELL VOLUME 89 fl (80.0-100.0); MEAN CORPUSCULAR HEMOGLOBIN 27 pg (27.0-31.0); MEAN CORPUSCULAR HGB CONC 31 g/dl (33.0-37.0); MEAN PLATELET VOLUME 11.1 fl (7.4-10.4); MONO # 0.9 (0.1-0.6); MONO % 9.7 % (1.7-9.3); PLATELET COUNT 293 K/mm3 (130-400); RED BLOOD COUNT 3.99 M/mm3 (4.20-5.60); REDCELL DISTRIBUTION WIDTH-CV 14.7 % (11.5-14.5)
[2021-02-26 10:14] LABS: INR 1.1 (0.8-3.0); PROTHROMBIN TIME 11.8 SECONDS (9.7-12.8)
[2021-02-26 10:20] LABS: ALANINE AMINOTRANSFERASE 33 U/L (4-49); ALBUMIN 4.1 gm/dL (3.5-5.0); ALKALINE PHOSPHATASE 201 U/L (50-136); ANION GAP 6 mmol/L (7-16); AST,SGOT 100 U/L (15-37); BILIRUBIN,TOTAL 0.8 mg/dL (0.0-1.0); BLOOD UREA NITROGEN 30 mg/dL (9-20); C-REACTIVE PROTEIN 4.2 mg/dL (0.0-0.9); CARBON DIOXIDE 21 mmol/L (22-30); CHLORIDE 113 mmol/L (98-107); CREATININE, serum 1.37 (0.66-1.25); GLUCOSE 98 mg/dL (74-106); LIPASE 36 U/L (23-300); POTASSIUM 5.1 mmol/L (3.4-5.0); SODIUM 140 mmol/L (137-145); TOTAL PROTEIN 7.9 gm/dL (6.4-8.2)
[2021-02-26 10:30] LABS: D-DIMER > 5250.00 ng/mLDDu (200-230)
[2021-02-26 10:43] LABS: TROPONIN-I < 0.012 ng/mL (0.000-0.035)
[2021-02-26 11:26] LABS: COLLECTION METHOD CLEAN CATCH
[2021-02-26 11:31] LABS: MUCOUS Present /lpf; PH 5 (5-8); SQUAMOUS EPITHELIAL None Seen /hpf; URINE APPEARANCE Clear; URINE BACTERIA None Seen /hpf; URINE BILIRUBIN Negative (NEGATIVE); URINE BLOOD 2+ (NEGATIVE); URINE COLOR Yellow; URINE GLUCOSE Negative (NEGATIVE); URINE KETONE Negative (NEGATIVE); URINE LEUKOCYTE ESTERASE Negative (NEGATIVE); URINE NITRATE Negative (NEGATIVE); URINE PROTEIN(semi-quant) Negative (NEGATIVE); URINE UROBILINOGEN Negative (NEGATIVE)
[2021-02-26 18:37] LABS: CREATININE, serum 1.44 (0.66-1.25); POTASSIUM 5.1 mmol/L (3.4-5.0)
[2021-02-26 20:40] VITALS: BP 135/72; PULSE 68
== END 2021-02-26 20:40 | disposition home or self-care (01) ==
LOC: COL.ER 09:32
PROVIDERS: Emergency Medicine
DX: N17.9 Acute kidney failure, unspecified (principal); T67.5XXA Heat exhaustion, unspecified, initial encounter; I10 Essential (primary) hypertension; Z72.3 Lack of physical exercise; Z79.82 Long term (current) use of aspirin; Z79.02 Long term (current) use of antithrombotics/antiplatelets; Z79.899 Other long term (current) drug therapy; Z95.9 Presence of cardiac and vascular implant and graft, unspecified
CPT/HCPCS: J7030

== ENCOUNTER → 2021-05-29 | Outpatient (CLI) | payer MEDICARE | LOC: COL.RAD 09:52 | DX: I71.4 Abdominal aortic aneurysm, without rupture (principal); Z98.890 Other specified postprocedural states; Z90.49 Acquired absence of other specified parts of digestive tract | CPT/HCPCS: Q9967 ==

== ENCOUNTER 2024-03-09 17:01 | Emergency (ER) | payer MEDICARE ==
[~2024-03-09] VITALS: Ht 170.2 cm; Wt 90.5 kg
[2024-03-09 17:03] VITALS: TEMP 99.1
[2024-03-09 18:58] VITALS: BP 178/78; PULSE 65
== END 2024-03-09 18:59 | disposition home or self-care (01) ==
LOC: COL.ER 17:01
DX: L76.22 Postprocedural hemorrhage of skin and subcutaneous tissue following other procedure (principal)

== ENCOUNTER 2024-03-15 01:30 | Emergency (ER) | payer MEDICARE ==
[~2024-03-15] VITALS: Ht 177.8 cm; Wt 84.1 kg
[2024-03-15 01:34] VITALS: TEMP 97.8
[2024-03-15 01:51] VITALS: BP 165/73; PULSE 60
== END 2024-03-15 01:51 | disposition home or self-care (01) ==
LOC: COL.ER 01:30
DX: S00.80XA Unspecified superficial injury of other part of head, initial encounter (principal); X58.XXXA Exposure to other specified factors, initial encounter

== ENCOUNTER 2024-03-17 16:10 | Emergency (ER) | payer MEDICARE ==
[~2024-03-17] VITALS: Ht 172.7 cm; Wt 86.4 kg
[2024-03-17 16:12] VITALS: TEMP 98.5
[2024-03-17 17:03] LABS: BASO # 0.1 K/mm3 (0.0-0.2); EOS # 0.3 K/mm3 (0.0-0.7); EOS % 3.2 % (0.0-4.0); GRAN % 60.7 % (42.2-75.2); HEMOGLOBIN 11.4 g/dl (13.5-18.0); LYMPH % 24.5 % (20.0-51.0); MEAN CELL VOLUME 86 fl (80.0-100.0); MEAN CORPUSCULAR HEMOGLOBIN 27 pg (27-31); MEAN CORPUSCULAR HGB CONC 31 g/dl (33.0-37.0); MEAN PLATELET VOLUME 10.3 fl (7.4-10.4); MONO # 0.8 K/mm3 (0.1-0.6); MONO % 10.1 % (1.7-9.3); PLATELET COUNT 347 K/mm3 (130-400); RED BLOOD COUNT 4.27 M/mm3 (4.20-5.60); REDCELL DISTRIBUTION WIDTH-CV 14.9 % (11.5-14.5)
[2024-03-17 17:14] LABS: HEMATOCRIT 36.7 % (42.0-52.0)
[2024-03-17 17:16] LABS: ALBUMIN 3.6 g/dL (3.4-4.8); BILIRUBIN,TOTAL 0.4 mg/dL (0.2-1.2); CALCIUM 9.6 mg/dL (8.4-10.2); CREATININE, serum 1.36 mg/dL (0.72-1.25); MAGNESIUM 2.2 mg/dL (1.6-2.6); POTASSIUM 4.4 mEq/L (3.5-4.5); TOTAL PROTEIN 8.1 g/dl (6.2-8.1)
[2024-03-17 17:44] VITALS: BP 152/65
[2024-03-17 20:37] VITALS: PULSE 78
== END 2024-03-17 20:38 | disposition home or self-care (01) ==
LOC: COL.ER 16:10
PROVIDERS: Emergency Medicine
DX: K64.9 Unspecified hemorrhoids (principal)

== ENCOUNTER 2024-03-20 16:49 | Emergency (ER) | payer MEDICARE ==
[2024-03-20 16:59] VITALS: TEMP 98.6
[2024-03-20] MEDS ORDERED: Lidocaine PF 2% (20 MG/ML) 2 ML VIAL IH ONE (17:00)
[2024-03-20 17:42] LABS: BASO # 0.1 K/mm3 (0.0-0.2); BASO % 0.6 % (0.0-2.0); EOS # 0.4 K/mm3 (0.0-0.7); EOS % 4.2 % (0.0-4.0); GRAN # 6.1 K/mm3 (1.4-6.5); GRAN % 68.8 % (42.2-75.2); LYMPH # 1.5 K/mm3 (1.2-3.4); LYMPH % 17.4 % (20.0-51.0); MEAN CELL VOLUME 85 fl (80.0-100.0); MEAN CORPUSCULAR HGB CONC 31 g/dl (33.0-37.0); MEAN PLATELET VOLUME 9.7 fl (7.4-10.4); MONO # 0.8 K/mm3 (0.1-0.6); MONO % 8.5 % (1.7-9.3); PLATELET COUNT 335 K/mm3 (130-400); RED BLOOD COUNT 3.22 M/mm3 (4.20-5.60); REDCELL DISTRIBUTION WIDTH-CV 15.1 % (11.5-14.5)
[2024-03-20 17:44] LABS: HEMATOCRIT 27.4 % (42.0-52.0); HEMOGLOBIN 8.6 g/dl (13.5-18.0); MEAN CORPUSCULAR HEMOGLOBIN 27 pg (27-31)
[2024-03-20 17:48] LABS: INR 1.1 (0.8-3.0)
[2024-03-20] MEDS ORDERED: Bacitracin Topical Oint 30 GM TUBE TOP ONE (18:00)
[2024-03-20 18:04] LABS: ALBUMIN 3.4 g/dL (3.4-4.8); BILIRUBIN,TOTAL 0.3 mg/dL (0.2-1.2); CREATININE, serum 1.38 mg/dL (0.72-1.25); TOTAL PROTEIN 7.1 g/dl (6.2-8.1)
[2024-03-20 19:20] VITALS: BP 139/82; PULSE 70
== END 2024-03-20 19:21 | disposition home or self-care (01) ==
LOC: COL.ER 16:49
PROVIDERS: Emergency Medicine
DX: L76.22 Postprocedural hemorrhage of skin and subcutaneous tissue following other procedure (principal); D64.9 Anemia, unspecified; Z85.828 Personal history of other malignant neoplasm of skin; Z79.82 Long term (current) use of aspirin; Z79.02 Long term (current) use of antithrombotics/antiplatelets